=== PATIENT | female | born 1990 | race Caucasian/White ===

== ENCOUNTER → 2021-09-16 12:41 | Outpatient (CLI) | payer OTHER, SELFPAY ==
--- NOTE | 2021-09-16 12:46 | DI.US.S_ITS ---
PROCEDURE: US OB <= 14 WEEKS FETUS INDICATIONS: DATES OUTSIDE/PRIOR DATING DATA: Last menstrual period (LMP): 07/09/2021. LMP-based estimated date of delivery ([facility]): 04/15/2022. First dating scan (date and location): 09/16/2021. Estimated date of delivery ([facility]) from first dating scan: 04/15/2022. The calculations are made using the ultrasound [facility] of 04/17/2022. TECHNIQUE: Real-time scanning was performed of the fetus and maternal pelvic organs, with image documentation. Endovaginal scanning was also performed to better visualize the fetus and maternal ovaries. COMPARISON: None. FINDINGS: Embryo: [place]-rump length measuring 2.7 cm, gestational age 9 weeks 4 days a yolk sac is seen. No perigestational hemorrhage. Heart rate: 171 bpm. Maternal organs: Ovaries are within normal limits. IMPRESSION: 1. Dinero living intrauterine at 9 weeks 4 days based on today's crown rump length. 2. No perigestational hemorrhage. We strive to produce accurate, complete, and clear reports of imaging services. To assist us in improving patient care, this report was composed using standard report templates and voice recognition software. Therefore, it may contain abnormal punctuation, insertions and/or omissions. Occasional wrong-word or sound-alike substitutions may occur. Though we review the report and make efforts to correct it, we do recommend that the report be read carefully in proper context to recognize any text inaccuracies. Dictated by: Bridger Roblero M.D. on 09/16/2021 at 14:10 Approved by: Bridger Roblero M.D. on 09/16/2021 at 14:15
[2021-09-16 13:56] LABS: Appearance Urine UA CLEAR; Bilirubin Urine UA NEGATIVE (NEGATIVE); Color Urine UA YELLOW; Glucose Urine UA TRACE g/dL (Negative); Ketones Urine UA 1+ (NEGATIVE); Leukocyte Esterase Urine UA NEGATIVE (NEGATIVE); Nitrite Urine UA NEGATIVE (Negative); Occult Blood Urine UA NEGATIVE (Negative); Protein Urine UA TRACE (Negative); Specific Gravity Urine UA 1.025 (1.000-1.035); Urobilinogen Urine UA 0.2 E.U./dL (0.2)
[2021-09-16 14:06] LABS: Add Manual Diff / Slide Review NO; Basophils Absolute Auto 0 /uL (0-100); Basophils Percent Auto 0.3 % (0-2); Eosinophils Absolute Auto 0 /uL (0-450); Eosinophils Percent Auto 0.4 % (2-4); Hematocrit 40.3 % (36-46); Hemoglobin 13.8 g/dL (12.0-16.0); Lymphocytes Absolute Auto 2000 /uL (1100-4500); Lymphocytes Percent Auto 21.3 % (25-40); Mean Corpuscular HGB Conc 34.3 % (30-36); Mean Corpuscular Hemoglobin 30.3 PG (26-34); Mean Corpuscular Volume 88.5 fL (80-100); Monocytes Absolute Auto 500 /uL (0-900); Monocytes Percent Auto 5.6 % (3-14); Neutrophils Absolute Auto 6600 /uL (1500-7000); Neutrophils Percent Auto 72.4 % (50-75); Platelet Count 289 X10^3/uL (150-400); Red Blood Cell Count 4.56 X10^6/uL (4.0-5.2); Red Cell Distribution Width 13.4 % (11.6-14.8); White Blood Cell Count 9.2 X10^3/uL (4.5-11.0)
[2021-09-16 14:10] LABS: pH Urine UA 5.5 (4.5-8.0)
[2021-09-16 22:04] LABS: Hepatitis B Surface Antigen NEGATIVE s/c (NEGATIVE)
[2021-09-16 22:09] LABS: HIV 1 & 2 Ab/Ag 4th Gen Combo NEGATIVE (NEGATIVE); Hep C Virus Ab w/Reflex Quant NEGATIVE s/c (NEGATIVE)
[2021-09-17 07:11] LABS: Varicella IgG Antibody 734 index (Immune >165)
[2021-09-17 08:05] LABS: RPR Screen Non Reactive (Non Reactive)
== END ==
PROVIDERS: Referring Provider Obstetrics & Gynecology; Visit Provider Obstetrics & Gynecology
DX: Z34.81 Encounter for supervision of other normal pregnancy, first trimester (principal); Z3A.09 9 weeks gestation of pregnancy
CPT/HCPCS: 36415; 76801; 76817; 80055; 81003; 86787; 86803; 86850; 86900; 86901; 87086; 87389

== ENCOUNTER → 2021-10-29 16:36 | Outpatient (CLI) | payer OTHER, SELFPAY ==
[2021-11-02 21:48] LABS: AFP, Serum 35.8 ng/mL (.); Estriol, Free 0.86 ng/mL (.); Inhibin A, Dimeric 189.21 pg/mL (.); Inhibin A, MoM 1.02 (.); Maternal Ethnicity Caucasian (.); Maternal Weight 116 lbs (.); Number of Fetuses No (.); OSBR Risk 1 IN 10000 (.); Results Report (.); Test Results *Screen Negative* (.); hCG, MoM 0.68 (.); hCG, Serum 34670 mIU/mL (.)
== END ==
PROVIDERS: Referring Provider Obstetrics & Gynecology; Visit Provider Obstetrics & Gynecology
DX: Z34.02 Encounter for supervision of normal first pregnancy, second trimester (principal); Z3A.15 15 weeks gestation of pregnancy
CPT/HCPCS: 36415; 82105; 82677; 84702; 86336

== ENCOUNTER → 2021-12-01 12:19 | Outpatient (CLI) | payer OTHER, SELFPAY ==
--- NOTE | 2021-12-01 12:20 | DI.US.S_ITS ---
PROCEDURE: US OB >= 14 WEEKS FETUS INDICATIONS: ANATOMY OUTSIDE/PRIOR DATING DATA: Last menstrual period (LMP): 07/09/2021. LMP-based estimated date of delivery ([facility]): 04/15/2022. First dating scan (date and location): 09/16/2021. Estimated date of delivery ([facility]) from first dating scan: 04/17/2022. TECHNIQUE: Real-time scanning was performed of the fetus, with image documentation and biometric measurements. Endovaginal scanning: No COMPARISON: None. FINDINGS: General: A single living intrauterine gestation is present. Presentation: Breech. Placenta: Placental position is posterior with marginal previa. Amniotic fluid index: 13.9 cm, normal range is 5-24 cm. heart rate: 145 beats per minute. Maternal cervical canal: 6.0 cm long. Normal lower limit is 2.5 cm. biometrics: Biparietal diameter: 45 mm; 19 weeks 4 days Head circumference: 181 mm; 20 weeks 3 days Abdominal circumference: 144 mm; 19 weeks 5 days Femur length: 33 mm; 20 weeks 3 days Estimated gestational age by initial OB ultrasound: 20 weeks 3 days Composite gestational age from present scan: 20 weeks 0 days Estimated weight and percentile: 330 g, which is at the 26th percentile for gestational age Anatomic survey: Neuro: Ventricles are non-dilated at less than 10 mm. Cisterna magna is normal at 3-11 mm. Cerebellum is normal in size and morphology. Nuchal skin fold: Normal at less than 6 mm between 14-21 weeks gestational age. Face: Nose and lips, facial profile are normal. Spine: No evidence for spina bifida. Heart: 4-chambered heart is present, with normal ventricular outflow tracts. Diaphragm: Diaphragm is intact. Stomach: Left-sided stomach is present. Kidneys: No hydronephrosis. Normal is less than 5 mm in 2nd trimester, less than 7 mm in 3rd trimester. Cord: 3-vessel cord has orthotopic insertion. Bladder: Normal in size. Extremities: All 4 extremities identified. IMPRESSION: 1. Single living intrauterine gestation. 2. Normal survey of anatomy. 3. Estimated weight is at the 26th percentile for gestational age. 4. Marginal placenta previa. We strive to produce accurate, complete, and clear reports of imaging services. To assist us in improving patient care, this report was composed using standard report templates and voice recognition software. Therefore, it may contain abnormal punctuation, insertions and/or omissions. Occasional wrong-word or sound-alike substitutions may occur. Though we review the report and make efforts to correct it, we do recommend that the report be read carefully in proper context to recognize any text inaccuracies. Dictated by: Ladonna Barnes M.D. on 12/01/2021 at 15:02 Transcribed by: LINDA on 12/01/2021 at 15:10 Approved by: Ladonna Barnes M.D. on 12/01/2021 at 16:56
== END ==
PROVIDERS: Referring Provider Obstetrics & Gynecology; Visit Provider Obstetrics & Gynecology
DX: O44.22 Partial placenta previa NOS or without hemorrhage, second trimester (principal); Z3A.20 20 weeks gestation of pregnancy
CPT/HCPCS: 76811

== ENCOUNTER → 2022-01-07 13:50 | Outpatient (CLI) | payer OTHER, SELFPAY ==
[2022-01-07 16:08] LABS: Hematocrit 32.9 % (36-46); Hemoglobin 11.7 g/dL (12.0-16.0)
[2022-01-07 16:41] LABS: GTT (PREG) 1 Hour PP 50gm Dose 182 mg/dL (76-139)
== END ==
PROVIDERS: Referring Provider Obstetrics & Gynecology; Visit Provider Obstetrics & Gynecology
DX: Z34.82 Encounter for supervision of other normal pregnancy, second trimester (principal); Z3A.26 26 weeks gestation of pregnancy
CPT/HCPCS: 36415; 82950; 85014; 85018

== ENCOUNTER → 2022-01-21 09:50 | Outpatient (CLI) | payer OTHER, SELFPAY ==
[2022-01-21 11:07] LABS: Glucose Fasting Gestational 78 mg/dL (76-95)
[2022-01-21 12:01] LABS: Glucose 1 Hour Gest 157 mg/dL (76-180)
[2022-01-21 13:52] LABS: Glucose 2 Hour Gest 116 mg/dL (76-155)
[2022-01-21 18:09] LABS: Glucose Tol Interp,Gestational INTERPRETATION
[2022-01-21 18:16] LABS: Glucose 3 Hour Gest 89 mg/dL (76-140)
== END ==
PROVIDERS: Referring Provider Obstetrics & Gynecology; Visit Provider Obstetrics & Gynecology
DX: R73.09 Other abnormal glucose (principal); Z34.92 Encounter for supervision of normal pregnancy, unspecified, second trimester
CPT/HCPCS: 36415; 82951; 82952